=== PATIENT | male | born 1995 | race Caucasian/White ===

== ENCOUNTER 2021-12-24 17:41 | Emergency (ER) | payer BC, SELFPAY ==
[2021-12-24 18:16] VITALS: BP 123/74; PULSE 74; RESP 14; TEMP 37; O2SAT 97; BMI 25.0
--- NOTE | 2021-12-24 18:49 | ED_ITS ---
HPI - Recheck/Abnormal Lab/Rx <GIGI Victoria - Last Filed: 12/24/21 18:52> General Chief Complaint: Recheck/Abnormal Lab/Rx Stated Complaint: lt rib pain Time Seen by Provider: 12/24/21 18:34 Source: patient Mode of arrival: Ambulatory History of Present Illness HPI narrative: 26-year-old male presents to the emergency department for left-sided rib pain which he states is from a pinched nerve 6 years ago. Patient states that this happens every year and he gets a pain in his left ribs. He denies any shortness of breath, wheezing, injury or trauma, difficulty breathing, headache, fever, or any other symptom. States that pain deep breath, it is tender to palpation and he has been using ibuprofen heat for the last couple of days which has been helpful. Patient states that he just started working out again and it could be a muscle strain as well. He would like a work note to go back to work tomorrow, states that he has been home resting for the last 3 days due to this. Related Data Allergies Allergy/AdvReac Type Severity Reaction Status Date / Time No Known Drug Allergies Allergy Verified 12/24/21 18:19 Review of Systems <GIGI Victoria - Last Filed: 12/24/21 18:52> Review of Systems Narrative: General: denies fever, chills, malaise, sweats, fatigue Head/Neck: denies headache, neck pain, dizziness Eyes: denies visual changes, eye pain Cardio: denies chest pain, palpitations, edema Respiratory: denies dyspnea, cough, orthopnea, endorses left rib pain, denies any congestion, respiratory distress, cough, difficulty breathing GI: denies abdominal pain, nausea, vomiting, or diarrhea : denies dysuria, hematuria, urinary retention, frequency or incontinence MSK: denies joint pain, muscle weakness Skin: denies rash, itching, skin lesions or other Neuro: denies numbness, tingling Patient History <GIGI Victoria - Last Filed: 12/24/21 18:52> Social History Smoking Status: Current every day smoker Smoking Status: Current every day smoker alcohol intake frequency: a few times a month Substance Use Type: marijuana Exam <GIGI Victoria - Last Filed: 12/24/21 18:52> Narrative Exam Narrative: Independently reviewed vitals signs and nursing notes. General: cooperative, comfortable, in no acute distress, well developed and well groomed Head: atraumatic, symmetrical facial expressions Neck: supple, atraumatic, without lymphadenopathy. Eyes: pupils equal round and reactive, EOMI, conjunctiva normal Nose: nares patent, no rhinorrhea Mouth/Throat: uvula midline, moist mucus membranes Cardiovascular: regular rate and rhythm, no peripheral edema, warm extremities Respiratory: normal effort, able to speak in complete sentences, no audible wheezing, stridor, or rales. No retractions or tachypnea. No ecchymosis or visible wound, breath sounds are clear throughout GI: abdomen soft, nontender to palpation, nondistended, no masses, no exquisite tenderness with exam, without guarding or rebound. MSK: moves all extremities, ambulatory w/steady gait, neurovascularly intact, no weakness Skin: brisk capillary refill, no rash, no erythema Neuro: normal speech and cognition, A&O x3, normal tone Psych: mental status is grossly normal, congruent mood, normal affect, pleasant and cooperative Initial Vital Signs Initial Vital Signs: Vital Signs Temperature 98.6 F 12/24/21 18:16 Pulse Rate 74 12/24/21 18:16 Respiratory Rate 14 12/24/21 18:16 Blood Pressure 123/74 12/24/21 18:16 Pulse Oximetry 97 12/24/21 18:16 Course <GIGI Victoria - Last Filed: 12/24/21 18:52> Vital Signs Vital signs: Vital Signs - 8 hr 12/24/21 18:16 Temperature 98.6 F Pulse Rate 74 Respiratory Rate 14 Blood Pressure 123/74 Pulse Oximetry 97 [facility] - Recheck/Abnormal Lab/Rx <GIGI Victoria - Last Filed: 12/24/21 18:52> [facility] Narrative Medical decision making narrative: This is a 26-year-old male presents to the emergency department for left-sided rib pain which he states happens every year about this time of the year from a previous pinched nerve. Patient denies any trauma, states that he is here for a work note to return to work tomorrow. He denies any shortness of breath, breath sounds are clear throughout without any respiratory distress, tachypnea, cough, trauma, or abnormality on exam. Patient was given a work note to return to work tomorrow. Patient is appropriate and amenable to discharge home. Vital signs are stable on repeat examination is unremarkable. Differential includes muscle strain, costochondritis, rib pain. Patient has been informed of results. Patient has been given strict return to ER precautions for any new or worsening symptoms. Patient understands to follow up closely with outpatient providers as instructed. Patient understands plan and agrees to discharge home. All questions and concerns answered at this time. Discharge Plan Departure Patient Disposition: Home Clinical Impression: Rib pain on left side Instructions: DI for Muscle Strain Activity Restrictions/Additional Instructions: *You have been diagnosed with costochondritis versus muscle strain verses rib pain. Please continue to do your doing, heat, lidocaine patches, ibuprofen, Tylenol, and drink plenty of water. I hope that you start feeling better soon. This is likely not dangerous, you can use your tens unit if it is helpful for your pain. Please continue to light activity, it will likely be more sore if you are still for a long period of time. *What to do: *Please continue to take your regular medications as directed. [ ] New medication prescriptions sent to your pharmacy: [ ] [ ] New medication written as a paper prescription [ x] No new medications given *Please follow up with your primary care provider in 2-3 days, call for an appo intment. Let them know you were seen in the Emergency Department and that we asked that you be seen for follow-up. We will electronically transmit a record of today's note if your PCP is in our system *If you do not have a primary care provider please contact [phone] to establish care with one of the [facility] primary care providers. *Return to Emergency Department if you should have any new, worsening or concerning symptoms, such as [fever greater than 101F, chills, worsening pain, persistent vomiting or other bothersome symptoms] Stand Alone Forms: Work Release Note
== END 2021-12-24 18:52 | disposition home or self-care (01) ==
PROVIDERS: Emergency Provider Nurse Practitioner Critical Care Medicine
DX: R07.81 Pleurodynia (principal)
CPT/HCPCS: 99281